=== PATIENT | male | born 1965 | race Hispanic/Latino ===

== ENCOUNTER 2017-02-10 01:00 | Emergency (ER) | payer MEDICAID ==
[2017-02-10] MEDS ORDERED: Acetaminophen-Codeine 300/30 mg Tab PO STA (03:06)
--- NOTE | 2017-02-10 03:09 | ED PDOC ---
HPI: General Adult Time Seen by Provider: 02/10/17 02:32 Chief Complaint (Nursing): Lower Extremity Problem/Injury Chief Complaint (Provider): Chronic hip pain History Per: Patient History/Exam Limitations: no limitations Onset/Duration Of Symptoms: Days Have you had recent travel within the past 21 days to any of the following countries: [place], [place], [place] or [place]?: No Current Symptoms Are (Timing): Still Present Additional Complaint(s): Pt states he is seen in [place] for chronic hip pain. Denies new injury. Past Medical History Reviewed: Historical Data, Nursing Documentation, Vital Signs Vital Signs: Last Vital Signs Temp 97.8 F 02/10/17 02:28 Pulse 86 02/10/17 02:28 Resp 16 02/10/17 02:28 BP 117/69 02/10/17 02:28 Pulse Ox 100 02/10/17 02:28 - Medical History PMH: No Chronic Diseases - Surgical History Surgical History: No Surg Hx - Family History Family History: States: Unknown Family Hx - Living Arrangements Living Arrangements: With Family - Social History Current smoker - smoking cessation education provided: No - Allergies Allergies/Adverse Reactions: Allergies Allergy/AdvReac Type Severity Reaction Status Date / Time No Known Allergies Allergy Verified 02/10/17 02:32 Review of Systems ROS Statement: Except As Marked, All Systems Reviewed And Found Negative Musculoskeletal: Positive for: Other (Hip pain) Physical Exam - Reviewed Nursing Documentation Reviewed: Yes Vital Signs Reviewed: Yes - Physical Exam Appears: Positive for: Well, Non-toxic, No Acute Distress Head Exam: Positive for: ATRAUMATIC, NORMAL INSPECTION, NORMOCEPHALIC Skin: Positive for: Normal Color, Warm, DRY Eye Exam: Positive for: Normal appearance ENT: Positive for: Normal ENT Inspection Neck: Positive for: Normal, Painless ROM Cardiovascular/Chest: Positive for: Regular Rate, Rhythm Respiratory: Positive for: CNT, Normal Breath Sounds Gastrointestinal/Abdominal: Positive for: Normal Exam, Bowel Sounds, Soft Back: Positive for: Normal Inspection Extremity: Positive for: Normal ROM Neurologic/Psych: Positive for: Alert, Oriented - ECG O2 Sat by Pulse Oximetry: 100 Medical Decision Making Medical Decision Making: Tylenol #3 ordered for pain. No Rx given. Disposition - Clinical Impression Clinical Impression: Chronic hip pain - Patient ED Disposition Is Patient to be Admitted: No Counseled Patient/Family Regarding: Diagnosis, Need For Followup - Disposition Referrals: [facility] [Outside] Disposition: Routine/Home Disposition Time: 03:09 Condition: GOOD Instructions: Chronic Pain (ED)
[2017-02-10] MEDS ORDERED: Acetaminophen-Codeine 300/30 mg Tab ONE (05:17)
[2017-02-10 05:35] VITALS: BP 130/73; PULSE 79; RESP 17; TEMP 98.3; O2SAT 98
== END 2017-02-10 05:34 | disposition home or self-care (01) ==
LOC: H.ER 01:00
DX: M25.559 Pain in unspecified hip (principal)